=== PATIENT | male | born 1950 | race Caucasian/White ===

== ENCOUNTER 2022-03-13 16:56 | Outpatient (CLI) | payer MEDICARE ==
[2022-03-13 17:50] LABS: #Basophils 0.1 10x3/uL (0.0-0.2); #Eosinphils 0.1 10x3/uL (0.0-0.5); #Monocytes 0.7 10x3/uL (0.0-1.1); #Neutrophils 3.9 10x3/uL (1.5-8.4); %Basophils 0.8 % (0.0-2.0); %Lymphocytes 20.1 % (18.0-47.0); %Monocytes 12.3 % (0.0-10.0); %Neutrophils 64.5 % (40.0-75.0); Hemoglobin 14.2 g/dL (13.5-17.5); Mean Corpuscular HGB CONC 34.2 g/dL (32.0-36.0); Mean Corpuscular Hemoglobin 31.5 pg (27.0-33.0); Mean Platelet Volume 9.3 fl (7.4-10.4); Platelet Count 205 10x3/uL (150-450); RBC Distribution Width 13.1 % (11.5-14.5); Red Blood Cell (RBC) Count 4.51 10x6/uL (4.32-5.72)
[2022-03-13 18:09] LABS: Anion Gap 14 mmol/L (10-20); BUN (Urea Nitrogen) 22 mg/dL (8.4-25.7); Calc. Creatinine Clearance 0 mL/min (70-130); Calcium 9.6 mg/dL (7.8-10.44); Carbon Dioxide 25 mmol/L (23-31); Chloride 104 mmol/L (98-107); Glucose 93 mg/dL (83-110); Potassium 4.4 mmol/L (3.5-5.1); Sodium 139 mmol/L (136-145)
== END 2022-03-13 16:57 | disposition home or self-care (01) ==
LOC: LABBT 16:56
PROVIDERS: ATTEND Orthopaedic Surgery
DX: Z01.818 Encounter for other preprocedural examination (principal); S46.012A Strain of muscle(s) and tendon(s) of the rotator cuff of left shoulder, initial encounter; M19.012 Primary osteoarthritis, left shoulder; Z20.822 Contact with and (suspected) exposure to COVID-19
CPT/HCPCS: 80048; 85025; 93005; U0003; U0005; 93010

== ENCOUNTER 2022-03-16 06:46 | Observation (INO) | payer MEDICARE ==
[2022-03-16] MEDS ORDERED: VANCOMYCIN 2 GRAM/500 ML BAG 2 GM in Premix Bag 1 BAG IVPB SCH (07:30)
[2022-03-16] MEDS ORDERED: Tranexamic Acid 1,000 MG/10 ML VIAL ONE (07:31)
[2022-03-16] MEDS ORDERED: Sodium Chloride 0.9% 100 ML ONE ×2 (07:31→09:40)
[2022-03-16] MEDS ORDERED: Midazolam HCl 2 mg/2 ml Vial ONE (09:34)
[2022-03-16] MEDS ORDERED: fentaNYL Citrate/PF 100 MCG/2 ML SYRINGE ONE (09:38)
[2022-03-16] MEDS ORDERED: HYDROcodone/Acetaminophen 10/325 mg Tablet PO PRN ×2 (09:40)
[2022-03-16] MEDS ORDERED: CEFAZOLIN 2 GM VIAL ONE (09:40)
[2022-03-16] MEDS ORDERED: Rocuronium Bromide 10 MG/ML (10ML VIAL) ONE (09:53)
[2022-03-16] MEDS ORDERED: Ropivacaine 0.5% HCl/PF (150 MG/30 ML VIAL) ONE (09:53)
[2022-03-16] MEDS ORDERED: Glycopyrrolate 0.2 MG/ML 5 ML SYRINGE ONE (09:53)
[2022-03-16] MEDS ORDERED: Ondansetron PF 4 MG/2 ML Vial ONE (09:53)
[2022-03-16] MEDS ORDERED: Lidocaine 1% PF 5 ML VIAL ONE (09:53)
[2022-03-16] MEDS ORDERED: PROPOFOL 200 MG/20 ML VIAL ONE (09:53)
[2022-03-16] MEDS ORDERED: ePHEDrine 50 MG/ML VIAL ONE (09:53)
[2022-03-16] MEDS ORDERED: Fentanyl 100 MCG/2 ML VIAL SLOW IVP PRN (10:47)
[2022-03-16] MEDS ORDERED: Ropivacaine 0.2% 550 ML 550 ML NERVE BLCK SCH (11:00)
[2022-03-16] MEDS ORDERED: traMADol HCl 50 MG TAB PO PRN ×2 (11:00)
[2022-03-16] MEDS ORDERED: Ondansetron PF 4 MG/2 ML Vial IVP PRN (11:00)
[2022-03-16] MEDS ORDERED: HYDROcodone/Acetaminophen 5/325 mg Tablet PO PRN ×2 (11:00)
[2022-03-16] MEDS ORDERED: Promethazine HCl 25 MG/ML VIAL IM PRN ×2 (11:00→11:51)
[2022-03-16] MEDS ORDERED: SUGAMMADEX SODIUM 200 MG/2 ML VIAL ONE (11:14)
[2022-03-16] MEDS ORDERED: Fentanyl 100 MCG/2 ML VIAL ONE ×3 (11:50→12:23)
[2022-03-16] MEDS ORDERED: Ketorolac Tromethamine 30 MG/ML VIAL ONE (11:50)
[2022-03-16] MEDS ORDERED: Ketorolac Tromethamine 30 MG/ML VIAL IVP PRN (11:51)
[2022-03-16] MEDS ORDERED: Promethazine HCl 25 MG/ML VIAL IVPB PRN (11:51)
[2022-03-16] MEDS ORDERED: Ondansetron HCl/PF 4 MG/2 ML Vial IVP PRN (11:51)
[2022-03-16 14:50] VITALS: BMI 37.8
[2022-03-16] MEDS: CEFAZOLIN 2 GM in Sodium Chloride 0.9% 100 ML IVPB SCH (17:56)
[2022-03-16] MEDS ORDERED: Rosuvastatin 10 MG TAB PO SCH (21:00)
[2022-03-17] MEDS: CEFAZOLIN 2 GM in Sodium Chloride 0.9% 100 ML IVPB SCH (01:42)
[2022-03-17 05:58] VITALS: TEMP 97.9
[2022-03-17] MEDS ORDERED: Levothyroxine Sodium 50 MCG TAB PO SCH (06:00)
[2022-03-17] MEDS ORDERED: Lisinopril 20 MG TAB PO SCH (09:00)
[2022-03-17] MEDS ORDERED: Aspirin 81 mg Enteric Coated Tablet PO SCH (09:00)
[2022-03-17] MEDS ORDERED: Meloxicam 15 MG TAB PO SCH (09:00)
[2022-03-17 11:30] VITALS: BP 142/78
== END 2022-03-17 10:30 | disposition home or self-care (01) ==
LOC: SDC 06:46 → SURG B 14:35
PROVIDERS: ADMIT Orthopaedic Surgery; ATTEND Orthopaedic Surgery
PROC: 0RRK00Z Replacement of Left Shoulder Joint with Reverse Ball and Socket Synthetic Substitute, Open Approach (ICD-10-PCS; principal; 2022-03-16)
PROC: 3E0T3BZ Introduction of Anesthetic Agent into Peripheral Nerves and Plexi, Percutaneous Approach (ICD-10-PCS; 2022-03-16)
DX: S46.012A Strain of muscle(s) and tendon(s) of the rotator cuff of left shoulder, initial encounter (principal); M19.012 Primary osteoarthritis, left shoulder; M75.22 Bicipital tendinitis, left shoulder; I10 Essential (primary) hypertension; E78.5 Hyperlipidemia, unspecified; E03.9 Hypothyroidism, unspecified; Z87.891 Personal history of nicotine dependence; Z79.1 Long term (current) use of non-steroidal anti-inflammatories (NSAID); Z79.82 Long term (current) use of aspirin; Z79.890 Hormone replacement therapy; Z79.899 Other long term (current) drug therapy; Z96.653 Presence of artificial knee joint, bilateral; W19.XXXA Unspecified fall, initial encounter
CPT/HCPCS: 23472; 64416; 97116; 97139 ×2; A4306; C1713 ×6; C1776 ×2; J3370; 96365; 96366; G0378; J0690; J1885; J2250; J2405; J2704; J2795; J3010; J3490